=== PATIENT | female | born 1980 | race Caucasian/White ===

== ENCOUNTER 2017-05-03 20:23 | Emergency (ER) | payer MEDICAID ==
[2017-05-03 22:40] LABS: BASOPHIL % 0.5 % (0-2)
[2017-05-03 22:44] LABS: CARBON DIOXIDE 29.8 mmol/L (21-32); CHLORIDE SERUM 105 mmol/L (98-107); CREATININE SERUM 0.7 mg/dL (0.6-1.0); GFR1 > 60 mL/min; GLUCOSE SERUM 86 mg/dL (74-106); POTASSIUM SERUM 3.8 mmol/L (3.5-5.1); SODIUM SERUM 140 mmol/L (136-145)
[2017-05-03 22:49] LABS: ALBUMIN 3.5 g/dL (3.4-5.0); ALKALINE PHOSPHATASE 91 U/L (46-116); ALT/SGPT 77 U/L (14-59); AST/SGOT 66 U/L (15-37); BILIRUBIN TOTAL 0.2 mg/dL (0.20-1.00); TOTAL PROTEIN, SERUM 6.5 g/dL (6.4-8.2)
[2017-05-03 22:53] LABS: PLATELET COUNT 115 x10^3mcL (130-400); RED CELL DISTRIBUTION WIDTH 16.5 % (11.5-14.5)
[2017-05-04 00:36] VITALS: BP 114/71
== END 2017-05-04 00:36 | disposition home or self-care (01) ==
LOC: ED 20:23
PROVIDERS: Emergency Medicine
DX: G43.909 Migraine, unspecified, not intractable, without status migrainosus (principal); D64.9 Anemia, unspecified; R07.89 Other chest pain
CPT/HCPCS: J1200; J2060; J2765; J3490; J7030

== ENCOUNTER 2018-07-18 21:49 | Emergency (ER) | payer MEDICAID ==
[~2018-07-18] VITALS: Ht 165.1 cm; Wt 67.1 kg
[2018-07-18 21:50] VITALS: Ht 165.1 cm; Wt 67.1 kg
[2018-07-19 01:36] VITALS: BP 131/74
== END 2018-07-19 01:36 | disposition home or self-care (01) ==
LOC: ED 21:49
DX: R51 Headache (principal); H11.32 Conjunctival hemorrhage, left eye; H65.93 Unspecified nonsuppurative otitis media, bilateral; R03.0 Elevated blood-pressure reading, without diagnosis of hypertension
CPT/HCPCS: J1885; J3010; Q0162